=== PATIENT | male | born 1945 | race Caucasian/White ===

== ENCOUNTER → 2021-12-20 11:05 | Outpatient (CLI) | payer MEDICARE, SELFPAY ==
[2021-12-20 12:08] LABS: Appearance Urine UA SL CLOUDY; Bilirubin Urine UA NEGATIVE (NEGATIVE); Color Urine UA YELLOW; Glucose Urine UA NEGATIVE (Negative); Ketones Urine UA TRACE (NEGATIVE); Leukocyte Esterase Urine UA 2+ (NEGATIVE); Nitrite Urine UA POSITIVE (Negative); Occult Blood Urine UA TRACE-INTACT (Negative); Protein Urine UA 1+ (Negative); Urobilinogen Urine UA 0.2 E.U./dL (0.2)
[2021-12-20 12:16] LABS: Bacteria Urine Many (>30); Culture Indicated Urine Specimen Cultured; RBC Urine 0-1/HPF (0-5/HPF); WBC Urine >100/HPF (0-5/HPF)
== END ==
PROVIDERS: PCP Nurse Practitioner; Referring Provider Specialist; Visit Provider Specialist
DX: R30.0 Dysuria (principal)
CPT/HCPCS: 81001; 87077; 87086; 87186

== ENCOUNTER → 2022-01-06 12:58 | Outpatient (CLI) | payer MEDICARE, SELFPAY ==
[2022-01-06 14:39] LABS: Appearance Urine UA CLOUDY; Bilirubin Urine UA NEGATIVE (NEGATIVE); Color Urine UA YELLOW; Glucose Urine UA NEGATIVE (Negative); Ketones Urine UA TRACE (NEGATIVE); Leukocyte Esterase Urine UA 3+ (NEGATIVE); Nitrite Urine UA POSITIVE (Negative); Occult Blood Urine UA 1+ (Negative); Protein Urine UA TRACE (Negative); Specific Gravity Urine UA 1.015 (1.000-1.035); Urobilinogen Urine UA 0.2 E.U./dL (0.2); pH Urine UA 6.5 (4.5-8.0)
[2022-01-06 14:52] LABS: Bacteria Urine Many (>30); Culture Indicated Urine Specimen Cultured; RBC Urine None Seen (0-5/HPF); Squamous Epithelial Cell Urine 1-5 /HPF (0-5/HPF); WBC Urine >100/HPF (0-5/HPF)
== END ==
PROVIDERS: PCP Nurse Practitioner; Referring Provider Specialist; Visit Provider Specialist
DX: T19.0XXA Foreign body in urethra, initial encounter (principal); T19.1XXA Foreign body in bladder, initial encounter
CPT/HCPCS: 81001; 87077; 87086; 87186

== ENCOUNTER → 2022-01-10 10:26 | Outpatient (CLI) | payer MEDICARE, SELFPAY ==
[2022-01-10 10:49] LABS: COVID19 -Nasal RAPID Negative (Negative)
== END ==
PROVIDERS: PCP Nurse Practitioner; Visit Provider Specialist
DX: Z20.822 Contact with and (suspected) exposure to COVID-19 (principal)
CPT/HCPCS: 87635; C9803

== ENCOUNTER 2022-01-13 05:49 | Day surgery (SDC) | payer MEDICARE, SELFPAY ==
[2021-12-27 12:20] VITALS: BMI 32.3
[2022-01-13] VITALS (10 sets, daily range): BP systolic 136–150; BP diastolic 82–101; PULSE 75–83; RESP 12–18; TEMP 36.3–37; O2SAT 91–97; BMI 32.3
--- NOTE | 2022-01-13 | PATH_ITS ---
[facility] Accession Number: [id number] . 01 Material submitted: . OTHER - UROLIFT CLIPS . 01 Clinical history: . A: UROLIFT CLIPS FROM BLADDER NECK AND PROSTATE GROSS EXAM ONLY PLEASE . 02 Diagnosis: UroLift Clips, Removal: Metallic clip x2. Gross description only. [facility]V 01/15/2022 0958 Local . 02 Electronically signed: . Mega Limon MD, PhD, Pathologist NPI- [id number] . 01 Gross description: . Received fresh in a container labeled with the patient's name and additionally labeled urolift bladder neck and prostate clips are two metallic bifid clips measuring 0.7 cm in length and 0.1 mm in thickness. No soft tissue is present, and no markings are seen on the metallic clips. No tissue is submitted. ([id number]) /[facility] 01/14/2022 1635 Local . 02 Pathologist provided ICD-10: T19.1XXA . 02 CPT . 138706 Specimen Comment: A courtesy copy of this report has been sent to [phone] Performed at: 01 [facility] [address] [id number] MD Vinny Williamson MD Phone: [phone] Performed at: [address] [facility] [address] [place], [place] [id number] MD Annabelle Savage MD Phone: [phone]
[2022-01-13] MEDS: GENTAMICIN 240 MG in SODIUM CHLORIDE 0.9% 100 ML 106 ML IV (07:25)
[2022-01-13] MEDS: LACTATED RINGERS 1,000 ML 120 ML IV (07:39)
--- NOTE | 2022-01-13 07:41 | P.OP.PRE_ITS ---
Pre-operative Note COVID-19 Criteria for continued procedure: Expected advancement of disease process, Possibility delay results in more complex future surgery or treatment, Continuing or worsening of significant or severe pain, Deterioration of the patient's condition or overall health and Delay expected to result in less-p ositive ultimate med/surg outcome Interval Note History & Physical reviewed/Exam performed by Physician: Yes Changes to H&P: No
[2022-01-13] MEDS: PIPERACILLIN/TAZO 4.5 GM in SODIUM CHLORIDE 0.9% 100 ML 200 ML IV (07:52)
--- NOTE | 2022-01-13 08:02 | SUR.OPER ---
Lithotomy on padded OR bed, head on pillow, arms secured on padded arm boards at <90 degrees abduction. Legs secured in padded yellow fins stirrups.
[2022-01-13] MEDS: BELLADONNA/OPIUM SUPPOSITORIES 1 EACH PR (09:18)
--- NOTE | 2022-01-13 09:28 | P.OP_ITS ---
Operative Date/Time/Diagnoses Date of procedure: 01/13/22 Time of procedure: 09:28 Post-op diagnosis: same Procedure & Clinicians Procedure: 1. Cystoscopy/removal foreign body prostate. 2. Cystoscopy/removal foreign body bladder. Same procedure as scheduled: Yes Indications: 1. Foreign body prostate. 2. Foreign body bladder. Click Yes if Unassisted: Yes Anesthesia Type: General Operative Notes Findings: 1. Urethra-penile segment without annular stricture or lesion. 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 2. External sphincter- coapted with normal overlying urothelium. 3. 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 A Uro lift clip was identified at the mid left anterior lateral prostate fossa. There was more proximal treatment effect (R ezum). 4. Bladder-a UroLift clip was identified at the left bladder neck at approximately 5:00 o'clock. There is a 2nd Uro lift clip located at the interface of the right anterior bladder neck and wall and proximal to the bladder neck at approximately 7:00 o'clock. Due to technical limitations (in ability to adequately deflect the flexible endoscope once the flexible alligator grasper was passed distally), this, 3rd, urolith clip was not removed. There was impressive circumferential impingement the bladder neck due to enlarged prostate and a moderate intravesical median lobe protruding into bladder lumen. Ureteral orifices are normal position bilaterally. No evidence of stone or tumor. Closure Type: not applicable Specimen(s): other (Uro lift surgical clips x2) Applied: catheter (22 Lithuanian hematuria catheter.) Estimated Blood Loss (mL): 10 Blood products transfused: none Procedure in detail: The patient was positioned in supine was administered general anesthesia. He was then repositioned in semi lithotomy and the lower abdomen, genitalia, and groin were then prepped and draped in sterile fashion. The 25 Lithuanian panendoscope was then passed lower urinary tract the findings as described above. The alligator tooth foreign body grasper was then used to engage the most distal, prostatic fossa clip, clip was then removed and submitted to pathology for gross examination. The scope was then advanced more proximally where the left bladder neck clip was identified. In the same fashion was engaged with the alligator gator tooth grasper and was removed. Again, it was submitted to pathology for gross examination. As expected the right intraluminal bladder wall clip could not be visualized with the rigid scope due to marked elevation of the median bar and intravesical protrusion of median lobe. Panendoscope was then removed and the flexible cystoscope was prepared. The scope was inserted lower urinary tract and passed proximally. Despite numerous, and painstaking attempts, the 3rd clip located at the right anterior bladder wall/neck could not be removed due to technical limitations (inability to deflect the scope adequately to successfully access the clip and engage it). A flexible ureteral scope was then removed and the 25 Lithuanian panendoscope was reintroduced. Small amount of clot that had accumulated in the bladder was then irrigated clear with the assistance of the Ellick evacuator. The bladder that was left partially filled and the panendoscope was removed. A [address] catheter was then introduced into the bladder over a stylet. The balloon was inflated to 10 cc catheter was placed to gravity drainage. The patient was then repositioned in supine, was awakened, and was transferred to [facility] for transport to PACU. Complications: none Post-operative Condition: stable Disposition: PACU Plan for aftercare: Discharge home.
--- NOTE | 2022-01-13 10:48 | SUR.PHASEII ---
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 No questions regarding catheter. Dr. Lucero instructed patient to remove lemus at 7 am on Thursday and follow up in his office in the early afternoon. Patient pleasant and appreciative of care. Stable
== END 2022-01-13 10:40 | disposition home or self-care (01) ==
PROVIDERS: PCP Nurse Practitioner; Referring Provider Specialist; Visit Provider Specialist
PROC: 0TJB8ZZ Inspection of Bladder, Via Natural or Artificial Opening Endoscopic (ICD-10-PCS; CPT 52000; principal; 2022-01-13 07:45)
DX: T19.1XXA Foreign body in bladder, initial encounter (principal); T19.0XXA Foreign body in urethra, initial encounter; N40.1 Benign prostatic hyperplasia with lower urinary tract symptoms; N13.8 Other obstructive and reflux uropathy; K21.9 Gastro-esophageal reflux disease without esophagitis; I10 Essential (primary) hypertension; N52.9 Male erectile dysfunction, unspecified
CPT/HCPCS: 52310; 82962; J2405; J2543; J2704; J3010

== ENCOUNTER → 2022-01-17 11:32 | Outpatient (CLI) | payer MEDICARE, SELFPAY | PROVIDERS: PCP Nurse Practitioner; Visit Provider Specialist | DX: N40.1 Benign prostatic hyperplasia with lower urinary tract symptoms (principal); N13.8 Other obstructive and reflux uropathy; R39.9 Unspecified symptoms and signs involving the genitourinary system | CPT/HCPCS: 51702; 51798; 87086 ==

== ENCOUNTER → 2023-02-19 11:24 | Outpatient (CLI) | payer MEDICARE, SELFPAY | PROVIDERS: PCP Nurse Practitioner; Visit Provider Specialist | DX: R39.9 Unspecified symptoms and signs involving the genitourinary system (principal); N40.1 Benign prostatic hyperplasia with lower urinary tract symptoms; N13.8 Other obstructive and reflux uropathy; Z80.42 Family history of malignant neoplasm of prostate | CPT/HCPCS: 81002; 87086; 99215 ==

== ENCOUNTER → 2025-03-27 08:40 | Outpatient (CLI) | payer MEDICARE, SELFPAY | PROVIDERS: PCP Nurse Practitioner; Visit Provider Urology | DX: T19.1XXA Foreign body in bladder, initial encounter (principal); T19.0XXA Foreign body in urethra, initial encounter; R39.9 Unspecified symptoms and signs involving the genitourinary system; N32.81 Overactive bladder | CPT/HCPCS: 51798; 81002; 87086; 99213 ==

== ENCOUNTER → 2025-06-05 08:22 | Outpatient (CLI) | payer MEDICARE, SELFPAY | PROVIDERS: PCP Nurse Practitioner; Visit Provider Urology | DX: N40.1 Benign prostatic hyperplasia with lower urinary tract symptoms (principal); N13.8 Other obstructive and reflux uropathy; R35.0 Frequency of micturition; R39.15 Urgency of urination | CPT/HCPCS: 51798; 81002; 87086; 99213 ==